=== PATIENT | male | born 1945 | race Caucasian/White ===

== ENCOUNTER 2018-09-11 07:46 | Day surgery (SDC) | payer MEDICARE, OTHER ==
[~2018-09-11] VITALS: Ht 175.3 cm; Wt 83.5 kg
[~2018-09-11 07:46] MED LIST: AMIO200T; CO Q300C PO; GNP1000T11 PO; ISOS60TA2; LATA0.0015 OU; LEVO50TA5 PO; LIDOCAINE 1% MDV 20ML VIAL SQ PRN; LIPI80TA PO; LR 1,000 ML IV ONE; MULTCAP PO; NITR4TASL; PLAV1TAB2 PO; PRES10CA2 PO; PREV1CAP PO; RAMI1CAP26; SIMB1SUS OU; TORS5TAB2; TRAD5TAB PO; XARE20TA; ceFAZolin SOD 1 GM in D5W MINI-BAG PLUS 50 ML IV ONE
[2018-09-11] MEDS ORDERED: PROPOFOL 200 MG/20 ML VIAL As Ordered ONE (08:30)
[2018-09-11] MEDS ORDERED: ROCURONIUM BROMIDE 50 MG/5 ML VIAL As Ordered ONE ×2 (08:31→13:20)
[2018-09-11] MEDS ORDERED: LIDOCAINE 2% INJ 100 MG/5 ML SDV (FOR ANES.) As Ordered ONE (08:31)
[2018-09-11] MEDS ORDERED: KETOROLAC 60 MG/2 ML VIAL (J1885) As Ordered ONE (08:33)
[2018-09-11] MEDS ORDERED: ONDANSETRON 4MG/2ML VIAL (J2405) As Ordered ONE (08:33)
[2018-09-11] MEDS ORDERED: dexameTHASONE 4 MG/ML 1ML VIAL (J1100) As Ordered ONE (08:33)
[2018-09-11] MEDS ORDERED: fentaNYL 250 MCG/5 ML INJECTION (J3010) As Ordered ONE (08:36)
[2018-09-11] MEDS ORDERED: MIDAZOLAM INJ 2 MG/2 ML VIAL (J2250) As Ordered ONE (08:42)
[2018-09-11] MEDS ORDERED: ASPIRIN 81 MG CHEW TABLET As Ordered ONE (09:09)
[2018-09-11] MEDS ORDERED: ASPIRIN 81 MG CHEW TABLET PO ONE (09:15)
[2018-09-11] MEDS ORDERED: BUPIVACAINE/EPIN 0.25% 30 ML VIAL As Ordered ONE (09:22)
[2018-09-11] MEDS ORDERED: BUPIVACAINE LIPOSOME/PF 1.3% 20ML VIAL (13.3MG/ML)(EXPAREL)(C9290 PER1MG) As Ordered ONE (09:22)
[2018-09-11] MEDS ORDERED: BUPIVACAINE HCL 0.25% 30 ML VIAL As Ordered ONE (09:22)
[2018-09-11] MEDS ORDERED: PHENYLEPHRINE INJ 10MG/ML VIAL (J2370) As Ordered ONE ×2 (10:08→10:19)
[2018-09-11] MEDS ORDERED: ePHEDrine SULFATE 25 MG/5 ML(5MG/ML) SYRINGE As Ordered ONE (10:09)
[2018-09-11] MEDS ORDERED: PHENYLephrine HCL 500 MCG/5 ML (100MCG/ML) SYRINGE (J2370) As Ordered ONE (10:09)
[2018-09-11] MEDS ORDERED: KETAMINE HCL 200 MG/20 ML VIAL As Ordered ONE (10:30)
[2018-09-11] MEDS ORDERED: SUGAMMADEX SODIUM 500 MG/5 ML VIAL (BRIDION) As Ordered ONE ×2 (10:42→14:05)
[2018-09-11] MEDS ORDERED: LR 1,000 ML IV SCH ×2 (12:30)
[2018-09-11] MEDS ORDERED: ONDANSETRON 4MG/2ML VIAL (J2405) IV PRN (12:30)
[2018-09-11] MEDS ORDERED: NORCO, ANEXSIA 5/325MG TABLET (HYDROcodone/ACETAMINOPHEN) PO PRN (12:30)
[2018-09-11] MEDS ORDERED: fentaNYL 100 MCG/2 ML INJECTION (J3010) IV PRN (12:30)
[2018-09-11] MEDS ORDERED: HYDROMORPHONE HCL 0.5 MG/ 0.5 ML SYRINGE (J1170 PER 1) IV PRN (12:30)
--- NOTE | 2018-09-11 12:53 | RO ---
DATE OF PROCEDURE: 09/11/2018 PREOPERATIVE DIAGNOSIS: 1. Left inguinal hernia. 2. Umbilical hernia. POSTOPERATIVE DIAGNOSIS: 1. Left inguinal hernia (indirect). 2. Incarcerated umbilical hernia. PROCEDURE: Robotic-assisted left inguinal hernia repair with ProGrip mesh and robotic assisted umbilical hernia repair. SURGEON: Dr. Deonte Vega SLAB STRIPPER: Diamond Torres (Diamond Torres provided instrument exchange, trocar placement, abdominal wall closure, mesh placement). ANESTHESIA: General endotracheal anesthesia. ESTIMATED BLOOD LOSS: 25 mL. FLUIDS: Crystalloid. DISPOSITION: The patient was taken to the recovery room awake, alert and hemodynamically stable. BRIEF OPERATIVE SUMMARY: The patient was taken to the operating room and was given general anesthesia. After adequate anesthesia and preoperative antibiotics were given, the patient was prepped and draped in the usual sterile fashion. Next, a left upper quadrant incision was made with a skin knife. Blunt dissection was carried down to fascia. A Veress needle placed into the abdominal cavity and insufflated to 15 mm of pressure. A dilating 8 mm trocar was placed revealing multiple adhesions along the midline in the left lower quadrant and at this point a left sided 8 mm trocar was placed. Given the multiple adhesions, I took these down with harmonic scalpel. All the adhesions at the umbilicus I did take down as well with the harmonic scalpel. Once these were all taken down, some adhesions down in the left lower quadrant also were taken down. Next, the robot was docked with the patient in steep Trendelenburg. Once this was performed, the camera targeted, and left inguinal hernia repair was performed in the following manner. There was the sigmoid colon which was adherent to the left inguinal area and this was taken down by sharp dissection. Mostly small adhesions were in this area and mostly this was able to be mobilized relatively easily by sharp dissection and some minimal blunt dissection in this area. The monopolar cut scissors were used to take down the peritoneum on this side and a plane was obtained using some blunt dissection as well as electrocautery for hemostasis. Eventually, the peritoneum was mobilized. It was a relatively moderately large left inguinal hernia that was delivered out of the inguinal canal and off the cord structures. The pubis as well as backside of Corey's was nicely visualized and the vessels in this area. Once the mesh was placed in the appropriate position, it was pressed into position and a #3-0 V-Loc suture was used close the peritoneum overlying this repair. Next, after good hemostasis was achieved and the results revealed good placement of the mesh, the umbilical hernia was repaired. The umbilical hernia was repaired after first reevaluating area that had been cleared of underlying adhesions, but more importantly, there was omentum within the hernia sac which needed to be mobilized out of this. I used the Harmonic scalpel to take this down previously. Once this had been taken down, the fascial defect could be appreciated, but there was also some diastasis above the umbilicus and some diastasis with the suggestion that this may be an early hernia development in this area as well. Thus, using a Stratafix 0 in a running manner, this was closed quite nicely and came together really quite well without undue stress or tension. The fascial bites were strong in this area. Overall, after this was closed, the trocars were removed under direct visualization. #4-0 Vicryl was used to close the skin incision. Steri-Strips and dry sterile dressing was applied. The patient was awakened from his anesthesia, brought to the recovery room, awake, alert and hemodynamically stable. Sponge and needle counts were correct times two.
[2018-09-11 15:45] VITALS: BP 148/67
== END 2018-09-11 16:00 | disposition home or self-care (01) ==
LOC: M SDC 07:46
PROVIDERS: ATTEND Surgery
DX: K40.90 Unilateral inguinal hernia, without obstruction or gangrene, not specified as recurrent (principal); K42.0 Umbilical hernia with obstruction, without gangrene; I10 Essential (primary) hypertension; I25.10 Atherosclerotic heart disease of native coronary artery without angina pectoris; E11.40 Type 2 diabetes mellitus with diabetic neuropathy, unspecified; E03.9 Hypothyroidism, unspecified; R07.9 Chest pain, unspecified; M12.9 Arthropathy, unspecified; I69.998 Other sequelae following unspecified cerebrovascular disease; G47.33 Obstructive sleep apnea (adult) (pediatric); Z88.5 Allergy status to narcotic agent; Z88.8 Allergy status to other drugs, medicaments and biological substances; Z91.030 Bee allergy status; Z79.899 Other long term (current) drug therapy; Z95.5 Presence of coronary angioplasty implant and graft; Z79.01 Long term (current) use of anticoagulants
CPT/HCPCS: 49650; 49653; C1781; C9290; J1100; J1885; J2250; J2370; J2405; J3010

== ENCOUNTER → 2020-09-07 | Outpatient (CLI) | payer MEDICARE, OTHER ==
[~2020-09-07] MED LIST changes: +ACET1TAB55 PO; -AMIO200T; +AMIO200T49; +ISOS1TAB36; -ISOS60TA2; -LIDOCAINE 1% MDV 20ML VIAL SQ PRN; +LOTE0.5S OU; -LR 1,000 ML IV ONE; +TRAV04OPD OU; -ceFAZolin SOD 1 GM in D5W MINI-BAG PLUS 50 ML IV ONE
== END ==
LOC: M RAD 15:36
PROVIDERS: ATTEND Family Medicine
DX: M79.661 Pain in right lower leg (principal)

== ENCOUNTER → 2020-09-11 | Outpatient (CLI) | payer MEDICARE, OTHER ==
[~2020-09-11] MED LIST changes: -ACET1TAB55 PO; +AMIO200T3; -AMIO200T49; -LOTE0.5S OU; -TRAV04OPD OU
[2020-09-11 14:52] LABS: C REACTIVE PROTEIN QUANTITATIV 0.62 MG/DL (0.00-0.30); RHEUMATOID FACTOR QUANT < 10.0 IU/ML (<15.0); URIC ACID 5.6 MG/DL (3.5-7.2)
[2020-09-12 17:11] LABS: ANTINUCLEAR ANTIBODIES DIRECT Negative (Negative); Lyme Disease IgG/IgM Antibodie <0.91 ISR (0.00-0.90); Lyme Disease IgM Ab Quantitati <0.80 index (0.00-0.79)
== END ==
LOC: M WUC 12:03
PROVIDERS: ATTEND Physician Assistant
DX: M51.36 Other intervertebral disc degeneration, lumbar region (principal)

== ENCOUNTER → 2020-09-28 | Outpatient (REF) | payer MEDICARE, OTHER | LOC: M LABDRAWC 11:38 | PROVIDERS: ATTEND Physician Assistant | DX: M79.605 Pain in left leg (principal) ==

== ENCOUNTER → 2020-10-06 | Outpatient (CLI) | payer MEDICARE, OTHER ==
--- NOTE | 2020-10-06 11:48 | REP ---
INDICATION: DD L REGION. COMPARISON: None. TECHNIQUE: Sagittal and axial T1 and T2-weighted scans are acquired in the usual fashion with and without fat saturation. Sequences include spin echo, turbo spin-echo, and STIR imaging sequences. FINDINGS: Lumbar vertebral body heights are preserved. The tip of the conus medullaris is normal in position and appearance at L1. Normal caliber aorta is seen. There are small bilateral renal cortical cysts and incidental note is made of diverticulosis of the left and right colon. There are asymmetric facets and posterior elements on the right at L5-S1 consistent with normal variant. There is facet hypertrophy bilaterally at L5-S1, right more so than left. There is right-sided neural foraminal narrowing at L5-S1 due to facet hypertrophy. No focal disc protrusion is seen. At L4-5, there is a degenerative 2.5 mm grade 1 L4-5 spondylolisthesis due to degenerative disc disease and facet arthropathy. No spondylolysis is seen. There is mild diffuse disc bulging. Moderate facet and ligamentum flavum hypertrophy contribute along with disc bulging to central canal stenosis which is [id number]. There is bilateral neural foraminal encroachment, left greater than right due to facet hypertrophy and disc bulging. At L3-4, there is degenerative disc narrowing and desiccation. Minimal diffuse disc bulging is seen. No other finding at L3-4. At L2-3 there is degenerative disc narrowing and anterior osteophyte formation. No focal disc protrusions, spinal stenosis, or foraminal narrowing seen. At L1-2 there is minimal discogenic spurring anteriorly. IMPRESSION: Central canal stenosis at L4-5 due to diffuse disc bulging, moderate ligamentum flavum and facet hypertrophy, and a degenerative grade 1 2.5 mm L4-5 spondylolisthesis. Neural foraminal narrowing bilaterally at 4 5 and on the right at L5-S1. <Electronically signed by Dewayne Sun > 10/06/20 [id number]
== END ==
LOC: M PLARAD 09:26
PROVIDERS: ATTEND Physician Assistant
DX: M54.5 Low back pain (principal)

== ENCOUNTER 2020-11-20 10:40 | Emergency (ER) | payer MEDICARE, OTHER ==
[~2020-11-20] VITALS: Ht 172.7 cm; Wt 77.1 kg
[2020-11-20 11:34] LABS: BASO % 0.3 % (0.0-1.0); EOS # 0.1 10^3/uL (0.0-0.5); EOS % 0.5 % (0.0-3.0); HEMATOCRIT 40.3 % (42.0-52.0); LYMPH # 0.7 10^3/uL (1.5-5.0); MEAN CORPUSCULAR HGB CONC 32.3 g/dl (32.0-36.5); MONO # 0.7 10^3/uL (0.0-0.8); MONO % 6.9 % (2.0-8.0); NEUTROPHILS # 8.1 10^3/uL (1.5-8.5); PLATELET COUNT, AUTOMATED 305 10^3/uL (150-450); WHITE BLOOD COUNT 9.6 10^3/uL (4.0-10.0)
[2020-11-20] MEDS ORDERED: LOTE0.5S OU (11:53)
[2020-11-20] MEDS ORDERED: TRAV04OPD OU (11:53)
[2020-11-20] MEDS ORDERED: ACET1TAB55 PO (11:53)
--- NOTE | 2020-11-20 11:56 | REP ---
INDICATION: CHEST PAIN COMPARISON: 03/14/2014 TECHNIQUE: Portable AP view of the chest FINDINGS: The mediastinum and cardiac silhouette are stable again demonstrating prior sternotomy and CABG. The lung pruitt demonstrate chronic appearing changes. Subtle basilar atelectasis cannot be excluded. Skeletal structures are intact. IMPRESSION: Chronic stable changes. Cannot exclude subtle superimposed atelectasis. <Electronically signed by Patrick Ventura > 11/20/20 [id number]
[2020-11-20 12:23] LABS: ALBUMIN 3.6 GM/DL (3.2-5.2); BILIRUBIN,DIRECT 0.5 MG/DL (0.0-0.2); BILIRUBIN,TOTAL 1.4 MG/DL (0.2-1.0); CALCIUM LEVEL 9.3 MG/DL (8.8-10.2); CK-MB VALUE MASS 3.7 NG/ML (<3.6); CREATININE FOR GFR 2.04 MG/DL (0.70-1.30); FREE T4 1.15 NG/DL (0.76-1.46); GLOMERULAR FILTRATION RATE 34.1 (>42); MB/CK RELATIVE INDEX 3.81 (< OR =4); POTASSIUM SERUM 4.5 MEQ/L (3.5-5.1); THYROID STIMULATING HORMONE 3.22 uIU/ML (0.358-3.740); TOTAL PROTEIN 6.7 GM/DL (6.4-8.2); TROPONIN I 0.19 NG/ML (< 0.10)
[2020-11-20 14:42] LABS: MB/CK RELATIVE INDEX 3.09 (< OR =4); TROPONIN I 0.2 NG/ML (< 0.10)
[2020-11-20 16:00] VITALS: BP 136/78
--- NOTE | 2020-11-20 21:38 | ECGEPIP ---
[facility] - ED Test Date: 2020-11-20 Pat Name: BHASKAR SANABRIA Department: Room: - Gender: Male Digital Media Representative: : 1945 Requested By: Eric Flowers Order Number: [id number] Reading MD: Eric Godinez Measurements Intervals [place] Rate: 80 P: 70 MA: 194 QRS: -17 QRSD: 92 T: 143 QT: 398 QTc: 459 Interpretive Statements Sinus rhythm with premature atrial complexes ST & T wave abnormality, consider anterior ischemia Electronically Signed on 11-20-2020 21:37:48 EDT by Eric Godinez
== END 2020-11-20 16:21 | disposition home or self-care (01) ==
LOC: M ED 10:40
DX: S29.011A Strain of muscle and tendon of front wall of thorax, initial encounter (principal); X58.XXXA Exposure to other specified factors, initial encounter; Y92.9 Unspecified place or not applicable; Y93.9 Activity, unspecified; Y99.9 Unspecified external cause status; E11.9 Type 2 diabetes mellitus without complications; I48.91 Unspecified atrial fibrillation; I25.10 Atherosclerotic heart disease of native coronary artery without angina pectoris; I10 Essential (primary) hypertension; E78.5 Hyperlipidemia, unspecified; E03.9 Hypothyroidism, unspecified; Z88.5 Allergy status to narcotic agent; Z88.8 Allergy status to other drugs, medicaments and biological substances; Z91.030 Bee allergy status; Z79.890 Hormone replacement therapy; Z79.899 Other long term (current) drug therapy

== ENCOUNTER → 2021-02-26 | Outpatient (CLI) | payer MEDICARE, OTHER ==
[~2021-02-26] MED LIST changes: +ACET1TAB55 PO; -AMIO200T3; +AMIO200T49; +LOTE0.5S OU; +TRAV04OPD OU
== END ==
LOC: M PLAIMG 08:43
PROVIDERS: ATTEND Family Medicine
DX: R06.00 Dyspnea, unspecified (principal); R63.4 Abnormal weight loss

== ENCOUNTER → 2021-03-02 | Outpatient (REF) | payer MEDICARE, OTHER ==
[~2021-03-02] MED LIST changes: +AMIO200T3; -AMIO200T49
[2021-03-02 13:53] LABS: PERCENT SATURATION 6.7 % (19.7-50.0)
== END ==
LOC: M LAB REF 13:00
PROVIDERS: ATTEND Internal Medicine Nephrology
DX: D50.9 Iron deficiency anemia, unspecified (principal)

== ENCOUNTER 2021-03-08 11:22 | Outpatient (CLI) | payer MEDICARE, OTHER ==
[~2021-03-08 11:22] MED LIST changes: +ALBUTEROL SULFATE 2.5 MG/0.5 ML INH NEB SOLN INH PRN; -AMIO200T3; +AMIO200T49; +EPINEPHrine INJ 1 MG/ML 1ML AMP IM PRN; +diphenhydrAMINE 50MG/ML VIAL (J1200) IV PRN; +methylPREDNISolone 125MG 2ML VIAL IV PRN
[2021-03-08] MEDS ORDERED: FERRIC CARBOXYMALTOSE INJ 750 MG, VIAL MATE ADAPTER 1 EACH in NS 250 ML IV ONE (11:30)
[2021-03-08] MEDS ORDERED: NS 1,000 ML IV SCH (11:30)
[2021-03-08] MEDS ORDERED: diphenhydrAMINE 50MG/ML VIAL (J1200) IV ONE (11:30)
[2021-03-08] MEDS ORDERED: methylPREDNISolone 125MG 2ML VIAL IV ONE (11:30)
[2021-03-08 12:08] VITALS: BP 134/62
[2021-03-08 13:55] VITALS: BP 138/84
== END 2021-03-08 13:50 | disposition home or self-care (01) ==
LOC: M INFU 11:22
PROVIDERS: ATTEND Internal Medicine Nephrology
DX: N18.9 Chronic kidney disease, unspecified (principal); D63.1 Anemia in chronic kidney disease; Z88.8 Allergy status to other drugs, medicaments and biological substances
CPT/HCPCS: 96365; 96375; J1439; J2930

== ENCOUNTER → 2021-03-29 | Outpatient (CLI) | payer MEDICARE, OTHER ==
[~2021-03-29] MED LIST changes: -ALBUTEROL SULFATE 2.5 MG/0.5 ML INH NEB SOLN INH PRN; -EPINEPHrine INJ 1 MG/ML 1ML AMP IM PRN; -diphenhydrAMINE 50MG/ML VIAL (J1200) IV PRN; -methylPREDNISolone 125MG 2ML VIAL IV PRN
== END ==
LOC: M RAD 08:36
PROVIDERS: ATTEND Internal Medicine Nephrology
DX: I70.1 Atherosclerosis of renal artery (principal); N18.32 Chronic kidney disease, stage 3b

== ENCOUNTER → 2021-04-14 | Outpatient (CLI) | payer MEDICARE, OTHER | LOC: M LABSMTC 10:46 | PROVIDERS: ATTEND Internal Medicine Cardiovascular Disease | DX: Z11.52 Encounter for screening for COVID-19 (principal); Z20.822 Contact with and (suspected) exposure to COVID-19 ==

== ENCOUNTER → 2021-05-28 | Outpatient (CLI) | payer MEDICARE, OTHER | LOC: M LABSMTC 09:22 | PROVIDERS: ATTEND Anesthesiology | DX: Z01.818 Encounter for other preprocedural examination (principal); Z11.52 Encounter for screening for COVID-19 ==

== ENCOUNTER 2021-06-01 08:20 | Day surgery (SDC) | payer MEDICARE, OTHER ==
[~2021-06-01] VITALS: Ht 175.3 cm; Wt 72.9 kg
[~2021-06-01 08:20] MED LIST changes: +ALPR0.5T3 PO; +COQ-100C5 PO; +GLUC500T53 PO; -ISOS1TAB36; +ISOS1TAB36 PO; -NITR4TASL; +NITR4TASL SL; +NS 1,000 ML IV ONE; +OCUVTAB4 PO; -RAMI1CAP26; +RAMI1CAP26 PO; +SODI2OPD OU; +SYNT100T PO; -TORS5TAB2; +TORS5TAB2 PO; +VITMTA PO; -XARE20TA; +XARE20TA PO
[2021-06-01] MEDS ORDERED: LIDOCAINE 2% 100MG/5ML SDV (FOR ANES.) As Ordered ONE (08:34)
[2021-06-01] MEDS ORDERED: propofoL 500 MG/50 ML VIAL As Ordered ONE (08:34)
[2021-06-01] MEDS ORDERED: fentaNYL 100 MCG/2 ML INJECTION As Ordered ONE (08:34)
[2021-06-01] MEDS ORDERED: ePHEDrine SULFATE 25 MG/5 ML(5MG/ML) SYRINGE As Ordered ONE (10:29)
[2021-06-01 11:35] VITALS: BP 102/56
== END 2021-06-01 11:45 | disposition home or self-care (01) ==
LOC: M OPP 08:20
PROVIDERS: ATTEND Internal Medicine Gastroenterology
DX: K63.3 Ulcer of intestine (principal); K64.8 Other hemorrhoids; K92.1 Melena; D50.9 Iron deficiency anemia, unspecified; K57.30 Diverticulosis of large intestine without perforation or abscess without bleeding; K22.89 Other specified disease of esophagus; E03.9 Hypothyroidism, unspecified; I11.9 Hypertensive heart disease without heart failure; E11.9 Type 2 diabetes mellitus without complications; K21.9 Gastro-esophageal reflux disease without esophagitis; I48.91 Unspecified atrial fibrillation; I25.2 Old myocardial infarction; Z95.5 Presence of coronary angioplasty implant and graft; G47.30 Sleep apnea, unspecified; Z88.8 Allergy status to other drugs, medicaments and biological substances; Z88.5 Allergy status to narcotic agent; Z91.030 Bee allergy status; Z79.899 Other long term (current) drug therapy; Z79.01 Long term (current) use of anticoagulants
CPT/HCPCS: 43235; 45380; 88305; J3010

== ENCOUNTER → 2021-11-14 | Outpatient (CLI) | payer MEDICARE, OTHER ==
[~2021-11-14] MED LIST changes: -NS 1,000 ML IV ONE
== END ==
LOC: M LABSMTC 11:01
PROVIDERS: ATTEND Internal Medicine Cardiovascular Disease
DX: Z11.52 Encounter for screening for COVID-19 (principal)

== ENCOUNTER → 2021-11-30 | Outpatient (CLI) | payer MEDICARE, OTHER | LOC: M CARPUL 07:42 | PROVIDERS: ATTEND Thoracic Surgery (Cardiothoracic Vascular Surgery) | DX: I05.9 Rheumatic mitral valve disease, unspecified (principal) ==

== ENCOUNTER → 2021-12-14 | Outpatient (CLI) | payer MEDICARE, OTHER ==
[~2021-12-14] MED LIST changes: +ACETAMINOPHEN 325 MG TAB As Ordered ONE; +ACETAMINOPHEN TAB 650MG DOSE (2X325MG) PO PRN; +ASPI81TA26 PO; +CORE3.12 PO; +LIDOCAINE 1% MDV 20ML VIAL As Ordered ONE
[2021-12-14 12:37] LABS: APPEARANCE, BODY FLUID TURBID (CLEAR); PLEURAL FL COLOR AMBER (COLORLESS); SOURCE, BODY FLUID PLEURAL
[2021-12-14 13:00] VITALS: BP 107/57
== END ==
LOC: M IRPRO 09:20
PROVIDERS: ATTEND Physician Assistant
DX: J90 Pleural effusion, not elsewhere classified (principal)

== ENCOUNTER 2021-12-22 10:25 | Inpatient (IN) | payer MEDICARE, OTHER ==
[~2021-12-22] VITALS: Ht 172.7 cm; Wt 76.8 kg
[~2021-12-22 10:25] MED LIST changes: -ACETAMINOPHEN 325 MG TAB As Ordered ONE; -ACETAMINOPHEN TAB 650MG DOSE (2X325MG) PO PRN; -LIDOCAINE 1% MDV 20ML VIAL As Ordered ONE
[2021-12-22] MEDS ORDERED: SODI2OPD OU (11:04)
[2021-12-22] MEDS ORDERED: PRESCAP PO (12:15)
[2021-12-22 12:17] LABS: HEMATOCRIT 31.8 % (42.0-52.0); HEMOGLOBIN 8.9 g/dl (13.5-17.5); MEAN CORPUSCULAR HEMOGLOBIN 20.2 pg (27.0-33.0); MEAN CORPUSCULAR VOLUME 72.1 fl (80.0-96.0); PLATELET COUNT, AUTOMATED 367 10^3/uL (150-450); RED BLOOD COUNT 4.41 10^6/uL (4.30-6.10); WHITE BLOOD COUNT 12.3 10^3/uL (4.0-10.0)
[2021-12-22] MEDS ORDERED: HOME MED LIST COMPLETE! XX SCH (12:20)
[2021-12-22] MEDS ORDERED: HEPARIN SOD (PORCINE) 5000UNITS/ML 1ML VIAL/SYRINGE SC SCH (12:30)
[2021-12-22] MEDS ORDERED: NITROGLYCERIN 0.3 MG SUBL TAB SL PRN (12:45)
[2021-12-22 12:50] LABS: CALCIUM LEVEL 8.9 MG/DL (8.8-10.2); CREATININE FOR GFR 1.59 MG/DL (0.70-1.30); GLOMERULAR FILTRATION RATE 45.3 (>42); MAGNESIUM LEVEL 2.8 MG/DL (1.8-2.4); PHOSPHORUS LEVEL 2.9 MG/DL (2.5-4.9); POTASSIUM SERUM 4.1 MEQ/L (3.5-5.1)
[2021-12-22 13:30] LABS: FREE T4 1.5 NG/DL (0.76-1.46); THYROID STIMULATING HORMONE 0.699 uIU/ML (0.358-3.740)
[2021-12-22] MEDS ORDERED: FUROSEMIDE injection 250 MG in D5W 225 ML IV SCH ×4 (15:00)
[2021-12-22 16:29] VITALS: BP 122/66
[2021-12-22] MEDS ORDERED: RIVAROXABAN 20MG TAB (XARELTO) PO SCH (18:00)
[2021-12-22] MEDS ORDERED: ATORVASTATIN 20 MG TAB PO SCH (21:00)
[2021-12-22] MEDS ORDERED: LATANOPROST 0.005% OPHTH SOLN 2.5 ML OU SCH (21:00)
[2021-12-22] MEDS ORDERED: CARVedilol 3.125 MG TAB PO SCH (21:00)
[2021-12-22] MEDS ORDERED: OCUVITE 1 TAB PO SCH (21:00)
[2021-12-22] MEDS ORDERED: SODIUM CHLORIDE 5% OU SCH (21:00)
[2021-12-23] MEDS ORDERED: LEVOTHYROXINE 100MCG TABLET (0.1MG) PO SCH (06:00)
[2021-12-23] MEDS ORDERED: ASPIRIN 81MG ENTERIC TABLET PO SCH (09:00)
[2021-12-23] MEDS ORDERED: MULTIVITAMINS/MINERALS THERAP 1 TAB PO SCH (09:00)
== END 2021-12-22 16:49 | disposition short-term general hospital (02) | DRG 292 ==
LOC: M ED 10:25 → M ED INP 12:30
PROVIDERS: ADMIT Internal Medicine; ATTEND Internal Medicine
DX: I50.43 Acute on chronic combined systolic (congestive) and diastolic (congestive) heart failure (principal); N17.9 Acute kidney failure, unspecified; I48.91 Unspecified atrial fibrillation; I34.0 Nonrheumatic mitral (valve) insufficiency; I25.10 Atherosclerotic heart disease of native coronary artery without angina pectoris; E03.9 Hypothyroidism, unspecified; Z95.1 Presence of aortocoronary bypass graft; N18.9 Chronic kidney disease, unspecified; Z79.01 Long term (current) use of anticoagulants; Z79.890 Hormone replacement therapy; Z79.82 Long term (current) use of aspirin; Z79.899 Other long term (current) drug therapy; Z88.5 Allergy status to narcotic agent; Z88.8 Allergy status to other drugs, medicaments and biological substances; Z91.030 Bee allergy status

== ENCOUNTER → 2022-02-27 | Outpatient (REF) | payer MEDICARE, OTHER ==
[~2022-02-27] MED LIST changes: +CLOP75TA99 PO; -PLAV1TAB2 PO; +PRESCAP PO
[2022-02-27 19:00] LABS: PERCENT SATURATION 23.9 % (19.7-50.0)
== END ==
LOC: M LAB REF 17:06
PROVIDERS: ATTEND Internal Medicine Nephrology
DX: D50.9 Iron deficiency anemia, unspecified (principal)

== ENCOUNTER 2024-06-17 15:40 | Emergency (ER) | payer MEDICARE, OTHER ==
[~2024-06-17] VITALS: Ht 170.2 cm; Wt 69.1 kg
[~2024-06-17 15:40] MED LIST changes: +ATOR-398 PO; -CO Q300C PO; +CO Q300C2 PO; -LIPI80TA PO; +RAMI10CA64 PO; -RAMI1CAP26 PO
[2024-06-17 15:48] VITALS: BP 142/67; O2SAT 100
[2024-06-17 18:33] VITALS: TEMP 97.7
== END 2024-06-17 19:09 | disposition home or self-care (01) ==
LOC: M ED 15:40
DX: I73.9 Peripheral vascular disease, unspecified (principal); S86.211A Strain of muscle(s) and tendon(s) of anterior muscle group at lower leg level, right leg, initial encounter; Y92.9 Unspecified place or not applicable; Y93.9 Activity, unspecified; Y99.9 Unspecified external cause status; Z91.030 Bee allergy status; Z88.8 Allergy status to other drugs, medicaments and biological substances; Z79.1 Long term (current) use of non-steroidal anti-inflammatories (NSAID); Z79.899 Other long term (current) drug therapy; Z79.810 Long term (current) use of selective estrogen receptor modulators (SERMs)